=== PATIENT | female | born 1980 | race Two or more races ===

== ENCOUNTER 2022-02-10 00:29 | Inpatient (IN) | payer OTHER ==
[~2022-02-10] VITALS: Ht 177.8 cm; Wt 74.4 kg
[2022-02-10] MEDS ORDERED: PRENATAL TABLE1 EAC5 (00:35)
== END 2022-02-12 14:27 | disposition home or self-care (01) | DRG 807 ==
LOC: OB/GYN 00:29 → LDR 00:29 → OB/GYN 08:04
PROVIDERS: ADMIT Obstetrics & Gynecology; ATTEND Obstetrics & Gynecology
PROC: 10E0XZZ Delivery of Products of Conception, External Approach (ICD-10-PCS; principal; 2022-02-10)
PROC: 0HQ9XZZ Repair Perineum Skin, External Approach (ICD-10-PCS; 2022-02-10)
PROC: 4A1HXCZ Monitoring of Products of Conception, Cardiac Rate, External Approach (ICD-10-PCS; 2022-02-10)
DX: O70.0 First degree perineal laceration during delivery (principal); Z37.0 Single live birth; Z3A.39 39 weeks gestation of pregnancy; Z20.822 Contact with and (suspected) exposure to COVID-19